=== PATIENT | male | born 1980 | race Hispanic/Latino ===

== ENCOUNTER 2018-05-18 18:52 | Emergency (ER) | payer OTHER ==
[2018-05-18 19:03] VITALS: RESP 18; TEMP 97.4; O2SAT 100
[2018-05-18] MEDS ORDERED: Sodium Chloride 0.9% 1,000 ML IV STA (19:23)
[2018-05-18] MEDS ORDERED: Morphine 4 MG/ML VIAL ONE (19:28)
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
[2018-05-18 21:11] VITALS: BP 128/63; PULSE 60
--- NOTE | 2018-05-19 08:22 | RAD ---
Date of service: 05/18/2018 PROCEDURE: Radiographs of the Right Shoulder HISTORY: RIGHT shoulder injury COMPARISON: No prior. FINDINGS: BONES: No acute fracture or destructive bony lesion identified. JOINTS: There is an anterior inferior dislocation of the right humeral head relative to the glenohumeral joint. Acromioclavicular joint appears intact and is unremarkable appearing. SOFT TISSUES: Normal. OTHER FINDINGS: None. IMPRESSION: Anterior inferior dislocation right humeral head at the glenohumeral joint. No fracture appreciated.
--- NOTE | 2018-05-19 08:23 | RAD ---
Date of service: 05/18/2018 PROCEDURE: POSTREDUCTION RIGHT SHOULDER RADIOGRAPHS HISTORY: post reduction attemprt COMPARISON: Preliminary right shoulder radiography 05/18/2018. TECHNIQUE: Two views the right shoulder been submitted post reduction. FINDINGS: Adequate reduction is been achieved with no humeral joint now appearing unremarkable. Stable acromioclavicular joint identified. No fracture apparent. IMPRESSION: Adequate reduction achieved at the right shoulder's glenohumeral joint. No fracture identified.
== END 2018-05-18 21:10 | disposition home or self-care (01) ==
LOC: H.ER 18:52
DX: S43.004A Unspecified dislocation of right shoulder joint, initial encounter (principal); W05.2XXA Fall from non-moving motorized mobility scooter, initial encounter; Y92.89 Other specified places as the place of occurrence of the external cause
CPT/HCPCS: 23655; 73030; 96374; 99284; J1885; J2270; J7030